=== PATIENT | female | born 1975 | race Caucasian/White ===

== ENCOUNTER → 2018-01-15 | Outpatient (CLI) | payer MEDICAID | LOC: CIMAGING 10:01 | PROVIDERS: ATTEND Ophthalmology Pediatric Ophthalmology and Strabismus Specialist | DX: R76.0 Raised antibody titer (principal) | CPT/HCPCS: 71046-PO ==

== ENCOUNTER → 2018-07-06 | Outpatient (CLI) | payer MEDICAID | LOC: CIMAGING 10:50 | PROVIDERS: ATTEND Family Medicine | DX: Z12.31 Encounter for screening mammogram for malignant neoplasm of breast (principal); R92.8 Other abnormal and inconclusive findings on diagnostic imaging of breast ==

== ENCOUNTER → 2018-07-14 | Outpatient (CLI) | payer MEDICAID | LOC: CIMAGING 13:13 | PROVIDERS: ATTEND Family Medicine | DX: R92.8 Other abnormal and inconclusive findings on diagnostic imaging of breast (principal) | CPT/HCPCS: 76641-PO ==